=== PATIENT | male | born 1955 | race Caucasian/White ===

== ENCOUNTER 2016-07-28 03:55 | Emergency (ER) | payer OTHER ==
[2016-07-28] MEDS ORDERED: ASPIRIN81 M1 PO (04:07)
[2016-07-28] MEDS ORDERED: XANAX0.5 M1 PO (04:07)
[2016-07-28] MEDS ORDERED: ZOCOR20 M1 PO (04:07)
[2016-07-28 04:24] LABS: BASO % 0.8 % (0-2); BASO ABSOLUTE COUNT 0.1 tho/cmm (0.0-0.2); EOS % 1.9 % (0-7); EOSINOPHIL ABSOLUTE COUNT 0.1 tho/cmm (0.0-0.7); HCT-HEMATOCRIT 47.9 % (36.0-53.5); HGB-HEMOGLOBIN 16.4 gm/dl (13.5-17.0); IMMATURE GRANULOCYTES ABSOLUTE 0.02 tho/cmm (0-0.03); IMMATURE GRANULOCYTES PERCENT 0.3 % (0-0.3); LYMPH % 10.5 % (20-45); LYMPH ABSOLUTE COUNT 0.8 tho/cmm (0.8-4.5); MCH (MEAN CORPUSCULAR HGB) 32.5 pg (28.0-32.0); MCHC MEAN CORPUSCULAR HGB CONC 34.2 % (32.0-36.0); MEAN PLATELET VOLUME 9.7 cmc (9.4-12.4); MONO % 14.8 % (0-12); MONOCYTE ABSOLUTE COUNT 1.1 tho/cmm (0.0-1.2); NEUTROPHIL ABSOLUTE COUNT 5.2 tho/cmm (1.6-8.0); NEUTROPHIL-AUTOMATED 5.2 tho/cmm (1.6-8.0); NEUTROPHILS % 71.7 % (40-80); PLATELET COUNT 118 tho/cmm (150-450); RED BLOOD COUNT 5.04 mil/cmm (4.40-5.70); RED CELL DISTRIBUTION WIDTH 13.4 % (12.4-16.4); WHITE BLOOD COUNT 7.2 tho/cmm (4.0-10.0)
[2016-07-28] MEDS ORDERED: LEVAQUIN750 M1 PO (05:54)
[2016-07-28] MEDS ORDERED: VENTOLIN HFA18 G2 PO (05:54)
[2016-07-28] MEDS ORDERED: MEDROL4 M2 PO (05:54)
[2016-07-28 06:34] LABS: PROCALCITONIN <0.05 ng/ml (0.05-0.09)
== END 2016-07-28 06:38 ==
LOC: EDMED 03:55
PROVIDERS: Emergency Medicine Emergency Medical Services
DX: J06.9 Acute upper respiratory infection, unspecified (principal); J45.909 Unspecified asthma, uncomplicated; E78.5 Hyperlipidemia, unspecified
CPT/HCPCS: J1956; J2930; J7030